=== PATIENT | female | born 1995 | race Caucasian/White ===

== ENCOUNTER 2016-12-27 18:47 | Emergency (ER) | payer OTHER ==
[~2016-12-27] VITALS: Ht 160 cm; Wt 61.2 kg
--- NOTE | 2016-12-27 18:55 | NUR ---
ASSUME PT CARE. PT WAS BIBRA TO ER BED 12 [address] BY [address]. PT IS RUNNING THROUGH TRAFFIC, ACTING BIZZARE. SEEN IN ER MULTIPLE TIMES FOR SAME REASON. ON 4 PT RESTRAINT MAGNETIC LOCATER. PLACED ON MONITOR. AWAITING MD HESS.
[2016-12-27] MEDS ORDERED: diphenhydrAMINE HCL 50 MG/ML VIAL ONE (18:57)
[2016-12-27] MEDS ORDERED: HALOPERIDOL LACTATE INJ 5 MG/ML VIAL ONE (18:58)
[2016-12-27] MEDS ORDERED: LORAZEPAM INJ 2 MG/ML VIAL ONE (18:58)
--- NOTE | 2016-12-27 19:03 | NUR ---
VERBAL ORDER DR OCONNOR HALDOL 5MG , ATIVAN 2MG AND BENADRYL 50 MG VIA IM PT AGITATED
--- NOTE | 2016-12-27 19:17 | NUR ---
ASSISTANT SUPERINTENDENT FOR CURRICULUM AT BEDSIDE FOR BLOOD DRAW.
[2016-12-27 19:26] LABS: BASOPHILS # (AUTO) 0.1 /CMM (0.0-0.2); BASOPHILS % (AUTO) 0.9 % (0.0-2.0); EOSINOPHILS # (AUTO) 0.3 /CMM (0.0-0.7); EOSINOPHILS % (AUTO) 3.1 % (0.0-6.0); HEMATOCRIT 42 % (33-45); LYMPHOCYTES # (AUTO) 3.4 /CMM (0.8-4.8); MEAN CORPUSCULAR HEMOGLOBIN 31 PG (26.0-33.0); MEAN CORPUSCULAR HGB CONC 34 g/dl (31.0-36.0); MEAN CORPUSCULAR VOLUME 94 fL (82-100); MONOCYTES # (AUTO) 0.8 /CMM (0.1-1.30); MONOCYTES % (AUTO) 7.5 % (2.0-12.0); NEUTROPHILS # (AUTO) 5.4 /CMM (1.8-8.9); NEUTROPHILS % (AUTO) 54.5 % (43.0-81.0); PLATELET COUNT (AUTO) 334 /CMM (150-450); RDW COEFFICIENT OF VARIATION 13.6 (11.5-15.0); RED BLOOD CELL COUNT(AUTO) 4.46 MIL/uL (4.0-5.2)
[2016-12-27] MEDS ORDERED: HALOPERIDOL LACTATE INJ 5 MG/ML VIAL IM ONE (19:30)
[2016-12-27] MEDS ORDERED: diphenhydrAMINE HCL 50 MG/ML VIAL IM ONE (19:30)
[2016-12-27] MEDS ORDERED: LORAZEPAM INJ 2 MG/ML VIAL IM ONE (19:30)
[2016-12-27 19:34] LABS: APPEARANCE,URINE Clear (CLEAR); BILIRUBIN,URINE Negative (NEGATIVE); BLOOD, URINE Trace-lysed Ery/uL (NEGATIVE); COLOR,URINE Yellow (YELLOW); KETONES,URINE Negative (NEGATIVE); LEUKOCYTE ESTERASE ,URINE Negative (NEGATIVE); NITRITE, URINE Negative (NEGATIVE); PH,URINE 5.5 (5.0-8.0); PROTEIN,URINE Negative (NEGATIVE); UGLUCOSE Negative (NEGATIVE); UROBILINOGEN,URINE 0.2 EU/dL (0.2)
[2016-12-27 19:42] LABS: ALANINE AMINOTRANSFERASE 23 U/L (12-78); ALBUMIN 3.9 g/dL (3.4-5.0); ALCOHOL, BLOOD 200 mg/dL (0-0); ALKALINE PHOSPHATASE 83 U/L (46-116); ASPARTATE AMINOTRANSFERASE 18 U/L (15-37); BILIRUBIN,DIRECT 0.1 mg/dL (0.0-0.2); BILIRUBIN,TOTAL 0.4 mg/dL (0.2-1.0); CALCIUM, SERUM 8.8 mg/dL (8.5-10.1); CARBON DIOXIDE 23 mmol/L (21-32); CHLORIDE 106 mmol/L (98-107); CREATININE 0.7 mg/dL (0.6-1.3); GLUCOSE 99 mg/dL (74-106); POTASSIUM 3.1 mmol/L (3.5-5.1); SODIUM SERUM 143 mmol/L (136-145); UREA NITROGEN, BLOOD 13 mg/dL (7-18)
[2016-12-27 19:56] LABS: ACETAMINOPHEN < 2 ug/ml (10-30); SALICYLATE < 2.8 mg/dL (2.8-20.0)
[2016-12-27 20:07] LABS: BACTERIA,URINE None seen /HPF (None Seen); SQUAMOUS EPITHELIAL CELL,UR Few /HPF (None Seen); WBC,URINE 0-2 /HPF (0-3)
--- NOTE | 2016-12-27 22:39 | NUR ---
SLEEPING. ON MONITOR W/ STABLE VITALS. RESTRAINTS D/C'D. WILL CONTINUE TO MONITOR.
--- NOTE | 2016-12-27 23:20 | NUR ---
REPORT TO CHARGE NURSE CAM FOR [facility].
--- NOTE | 2016-12-28 01:53 | NUR ---
pt awake, alert and oriented. pt admits to using methamphetamines. pt denies si/hi
[2016-12-28 05:43] VITALS: BP 112/71
--- NOTE | 2016-12-28 05:43 | NUR ---
pt ok to discharge per dr sprague. aguilar catheter removed, catheter intact. Patient is awake and alert to self, day, and place.Patient discharged to home in stable condition. Written and verbal after care instructions given. Patient verbalizes understanding of instruction. pt ambulatory with a steady gait
== END 2016-12-28 05:44 | disposition home or self-care (01) ==
LOC: ER 18:49
DX: F15.10 Other stimulant abuse, uncomplicated (principal); F17.200 Nicotine dependence, unspecified, uncomplicated
CPT/HCPCS: 36415; 51702; 80048; 80076; 80305; 80329; 81001; 84703; 85025; 96372 ×3; 99284; A4606; G0480 ×2; J1200 ×2; J1630 ×2; J2060 ×2; Z7610; 81000-TC

== ENCOUNTER 2016-12-30 19:06 | Emergency (ER) | payer OTHER ==
[~2016-12-30] VITALS: Ht 157.5 cm; Wt 54.4 kg
--- NOTE | 2016-12-30 19:11 | NUR ---
PTIENT TO ED FROM ASSISTED DT FACE PAIN, 1/10 SP ALTERCATION THIS MORNING. NO KO, SKIN IS INTACT. VSS
[2016-12-30 19:13] VITALS: BP 118/76
== END 2016-12-30 19:23 | disposition home or self-care (01) ==
LOC: ER 19:07
DX: S00.83XA Contusion of other part of head, initial encounter (principal); F17.200 Nicotine dependence, unspecified, uncomplicated; Y04.0XXA Assault by unarmed brawl or fight, initial encounter; Y93.89 Activity, other specified; Y92.89 Other specified places as the place of occurrence of the external cause; Y99.9 Unspecified external cause status
CPT/HCPCS: 99283; A4606; Z7610

== ENCOUNTER 2020-01-08 23:35 | Emergency (ER) | payer MEDICAID ==
[~2020-01-08] VITALS: Ht 160 cm; Wt 63.5 kg
--- NOTE | 2020-01-09 | NUR ---
pt was bibra from street for laying down on the ground. pt currently sleeping, arouses easily, however refusing to answer any questions. no S/S of pain or discomfort noted at this time. VSS, pt was placed on a monitor and under close supervision of a sitter.
--- NOTE | 2020-01-09 03:55 | NUR ---
Patient is resting comfortably in bed with eyes closed. Easily aroused. VSS. will cont to monitor
--- NOTE | 2020-01-09 05:25 | NUR ---
PT AWAKE AND ALERT. PT PROVIDED NAME AND . PT PROVIDED WITH SKIN TRAY.
--- NOTE | 2020-01-09 05:47 | NUR ---
Patient discharged to home in stable condition. Written and verbal after care instructions given. Patient verbalizes understanding of instruction.
[2020-01-09 05:48] VITALS: BP 120/68
== END 2020-01-09 05:48 | disposition home or self-care (01) ==
LOC: ER 23:35 → MERGE 23:35 → EDBD 23:35 → ER 01-09 05:48
DX: F10.129 Alcohol abuse with intoxication, unspecified (principal); R41.82 Altered mental status, unspecified; Y90.9 Presence of alcohol in blood, level not specified